=== PATIENT | female | born 1945 | race African-American/Black ===

== ENCOUNTER 2024-03-30 23:44 | Emergency (ER) | payer MEDICARE, OTHER ==
[~2024-03-30 23:44] MED LIST: Iopamidol 370 76% 100 ML VIAL ONE
[2024-03-30] MEDS ORDERED: Ondansetron PF 4 MG/2 ML Vial ONE (23:57)
[2024-03-30] MEDS ORDERED: Morphine 4 MG/ML VIAL ONE (23:57)
[2024-03-30] MEDS ORDERED: Sodium Chloride 0.9% 1,000 ML ONE (23:57)
[2024-03-31 00:06] LABS: #Basophils 0.1 thou/uL (0.0-0.2); #Eosinophils 0.1 thou/uL (0.0-0.7); #Monocytes 0.8 thou/uL (0.11-0.59); #Neutrophils 7.1 thou/uL (1.40-6.50); %Basophils 1.2 % (0.0-1.0); %Eosinophils 1.2 % (0.0-10.0); %Lymphocytes 26.9 % (21.0-51.0); %Monocytes 6.9 % (0.0-10.0); %Neutrophils 63.8 % (42.0-75.0); Hematocrit 41.8 % (36.0-47.0); Hemoglobin 14.2 g/dL (12.0-16.0); Mean Corpuscular Volume 85.3 fl (78.0-98.0); Mean Platelet Volume 7.9 fL (7.4-10.4); Platelet Count 233 10x3/uL (130-400); RBC Distribution Width 11.3 % (11.5-14.5); Red Blood Cell (RBC) Count 4.89 mill/uL (4.20-5.40)
[2024-03-31 00:24] LABS: ALT (SGPT) 15 U/L (8-55); AST (SGOT) 15 U/L (5-34); Albumin 4.1 g/dL (3.4-4.8); Alkaline Phosphatase 138 U/L (40-110); Anion Gap 15 mmol/L (10-20); BUN (Urea Nitrogen) 20 mg/dL (9.8-20.1); Bilirubin, Total 0.3 mg/dL (0.2-1.2); Calc. Creatinine Clearance 0 mL/min (70-130); Calcium 9.7 mg/dL (7.8-10.44); Carbon Dioxide 23 mmol/L (23-31); Chloride 104 mmol/L (98-107); Estimated GFR 61; Globulin 3.4 g/dL (2.4-3.5); Glucose 212 mg/dL (83-110); Lipase 40 U/L (8-78); Potassium 3.2 mmol/L (3.5-5.1); Protein, Total 7.5 g/dL (5.8-8.1); Sodium 139 mmol/L (136-145); Troponin I Less than 0.010 ng/mL (< 0.028)
[2024-03-31] MEDS ORDERED: Ketorolac Tromethamine 30 MG (1 mL) VIAL ONE (01:27)
[2024-03-31 01:33] LABS: Bilirubin Negative (Negative); Blood, Urine Large (Negative); Glucose, Urine (Dipstick) 250 mg/dL (Negative); Ketone, Urine Negative (Negative); Leukocyte Negative (Negative); Nitrite Negative (Negative); Protein, Urine (Dipstick) Negative (Neg-Trace); Specific Gravity, Urine 1.015 (1.005-1.030); Urobilinogen 0.2 mg/dL (Less than 2)
[2024-03-31 01:39] LABS: CAUTI Indications for Culture Dysuria,urgency,freq; Clarity Hazy (Clear); Squamous Epithelial 0-3 HPF (0-3); WBC/HPF 0-3 HPF (0-3)
[2024-03-31 01:40] LABS: Bacteria/HPF 1+ HPF (None Seen)
[2024-03-31 01:41] LABS: Urine Culture Reflex No No
[2024-03-31] MEDS ORDERED: cefTRIAXone (ROCEPHIN) 1 GM VIAL ONE (02:04)
[2024-03-31] MEDS ORDERED: Sodium Chloride 0.9% 100 ML ONE (02:05)
== END 2024-03-31 03:50 | disposition home or self-care (01) ==
LOC: NAV ERS 23:44
DX: N13.2 Hydronephrosis with renal and ureteral calculous obstruction (principal); E86.0 Dehydration; N39.0 Urinary tract infection, site not specified; N12 Tubulo-interstitial nephritis, not specified as acute or chronic; E11.9 Type 2 diabetes mellitus without complications; I10 Essential (primary) hypertension
CPT/HCPCS: 74177; 80053; 81001; 83690; 84484; 85025; 93005; 96361; 96365; 96375; J0696; J1885; J2272; J2405; J7030; Q9967